=== PATIENT | male | born 1950 | race Caucasian/White ===

== ENCOUNTER 2017-05-01 09:44 | Observation (INO) | payer MEDICARE, OTHER, MEDICAID ==
[2017-05-01 10:08] LABS: BASOPHILS 0.4 % (0-2); EOSINOPHILS 1.9 % (0-7); HEMATOCRIT 41.1 % (42.0-54.0); HEMOGLOBIN 13.9 g/dL (13.5-17.5); IMMATURE GRANULOCYTES 0.3 % (0-5); LYMPHOCYTES 19.7 % (15-50); MCH 32.3 pg (26.0-34.0); MCHC 33.8 g/dL (31.0-37.0); MCV 95.4 fL (80.0-100.0); MEAN PLATELET VOLUME 11.1 fL (7.4-10.4); MONOCYTES 9.6 % (2-11); NEUTROPHILS 68.1 % (40-80); PLATELET COUNT 179 10x3/uL (130-400); RBC 4.31 10x6/uL (4.20-6.10); RDW 13.3 % (11.5-14.5)
[2017-05-01 10:22] LABS: ALBUMIN 3.6 g/dL (3.4-5.0); ALKALINE PHOSPHATASE 56 U/L (46-116); ALT (SGPT) 20 U/L (10-68); BILIRUBIN - TOTAL 0.29 mg/dL (0.2-1.3); CALC OSMOLALITY 279 mosm/kg (275-300); CALCIUM 8.6 mg/dL (8.5-10.1); CARBON DIOXIDE 27.4 mmol/L (21.0-32.0); CHLORIDE - SERUM 104 mmol/L (98-107); CREATININE - SERUM 1.1 mg/dL (0.6-1.3); GLUCOSE 120 mg/dL (74-106); POTASSIUM - SERUM 4.3 mmol/L (3.5-5.1); PROTEIN - SERUM 7.6 g/dL (6.4-8.2); SODIUM 139 mmol/L (136-145); UREA NITROGEN 16 mg/dL (7-18); eGFR NON AFRICAN AMERICAN 71 mL/min (90-120)
[2017-05-01 10:32] LABS: CKMB 0.2 U/L (0.0-3.6); CREATINE KINASE 54 UL (21-232)
[2017-05-01 10:34] LABS: TROPONIN-I < 0.017 ng/mL (0.000-0.060)
[2017-05-01 13:45] LABS: CKMB 0.2 U/L (0.0-3.6); CREATINE KINASE 57 UL (21-232)
--- NOTE | 2017-05-01 13:45 | NUR ---
PT REC'D TO ROOM VIA WC. AAOX4. ACCOMPANIED BY HOSPITAL STAFF AND FAMILY. NO COMPLAINTS OF PAIN. REGULAR HEART RATE AND RHYTHM. LUNG SOUNDS CLEAR AND EQUAL BILAT. BOWEL SOUNDS ACTIVE X4 QUADS. SKIN CDI. PIV TO L HAND FREE OF REDNESS AND SWELLING. NO CURRENT COMPLAINTS OF DIZZINESS OR SYNCOPE. HX OBTAINED. ANSWERS QUESTIONS APPROPRIATELY. FRESH WATER PROVIDED. BED LOW, CALL LIGHT IN REACH, DENIES NEEDS. CPOC.
[2017-05-01 13:47] LABS: TROPONIN-I < 0.017 ng/mL (0.000-0.060)
[2017-05-01] MEDS ORDERED: LISINOPRIL2.5 MG PO (13:48)
[2017-05-01] MEDS ORDERED: OMEPRAZOLE40 MG PO (13:49)
[2017-05-01] MEDS ORDERED: BAYER CHEWABLE81 MG PO (13:49)
[2017-05-01] MEDS ORDERED: BUSPAR 15 MG TA15 MG PO (13:50)
[2017-05-01] MEDS ORDERED: ALBUTEROL0.63 MG/3 INH (13:52)
--- NOTE | 2017-05-01 14:30 | NUR ---
URINE SPECIMEN OBTAINED AND SENT TO LAB. MEDICATIONS ADMINISTERED PER SEP. AT BEDSIDE. CHAIR BROUGHT TO ROOM. BED LOW, CALL LIGHT IN REACH, DENIES NEEDS. CPOC.
[2017-05-01 14:36] LABS: APPEARANCE CLEAR (CLEAR); COLOR YELLOW (YELLOW)
[2017-05-01 14:37] LABS: BILIRUBIN NEGATIVE (NEGATIVE); GLUCOSE NEGATIVE (NEGATIVE); KETONE NEGATIVE (NEGATIVE); NITRITE NEGATIVE (NEGATIVE); PROTEIN NEGATIVE (NEGATIVE); SPECIFIC GRAVITY 1.015 (1.005-1.020); UROBILINOGEN NORMAL (NORMAL)
[2017-05-01 17:19] VITALS: BP 117/58; BP 138/78
[2017-05-01 18:44] VITALS: BMI 25.1
[2017-05-01 19:20] LABS: CKMB 0.2 U/L (0.0-3.6); CREATINE KINASE 53 UL (21-232)
[2017-05-01 19:21] LABS: TROPONIN-I < 0.017 ng/mL (0.000-0.060)
[2017-05-01 20:40] VITALS: BP 135/70
--- NOTE | 2017-05-01 23:57 | NUR ---
ASSESSED AT THE BEGINNING OF THE SHIFT. PT IS ALERT AND ORIENTED, ABLE TO VERBALIZE NEEDS AND IS AT THE BEDSIDE. HE IS NOT HAVING ANY DIZZINESS AT THIS TIME. WHEN WE GAVE HIS HS MEDS HE STATED HE HAD NOT HAD HIS LISINOPRIL TODAY BUT IT SHOWS HE HAD IT, LOVENOX, AND AGUMENTEN. HE TOOK HIS ON PRILOSECT AND WE TALKED ABOUT HIM WORKING WITH HIS MD IN THE MORNING TO MAKE SURE HE HAS HIS MEDS CORRECT. HE IS ABLE TO GET UP TO THE BATHROOM AD LES AND ABLE TO TURN AND REPOSITION. THE BED IS LOW, RAILS UP X/S 2 WITH THE CALL LIGHT AT HAND.
--- NOTE | 2017-05-02 00:41 | NUR ---
RECEIVED REPORT FROM NIGHT NURSE. PT IN BED WITH EYES CLOSED. RESP EVEN AND UNLABORED. CALL LIGHT AT SIDE.
[2017-05-02 01:22] VITALS: BP 140/68
[2017-05-02 01:25] LABS: CKMB 0.3 U/L (0.0-3.6); CREATINE KINASE 53 UL (21-232); TROPONIN-I < 0.017 ng/mL (0.000-0.060)
[2017-05-02 04:08] VITALS: BP 143/42
--- NOTE | 2017-05-02 07:30 | NUR ---
AWAKE AND ALERT. OIREITNED X3. DENIES PAIN OR DIZZINESS THIS AM. NEURO CHECK WNL. LUNGS ARE CLEAR BILATERALLY, NO COUGH NOTED. SKIN IS INTACT WITHOUT REDNESS. SL TO LEFT HAND IS PATENT WITHOUT REDNESS AT INSERTION SITE. DENIES NEEDS.
[2017-05-02 08:25] VITALS: BP 139/60; BP 143/68
--- NOTE | 2017-05-02 09:30 | NUR ---
TOOK AM MEDS WITHOUT DIFFICULTY. ATE ALMOST ALL OF BREAKFAST.
--- NOTE | 2017-05-02 09:37 | HP ---
PATIENT: SHUKRI MENSAH MEDICAL RECORD: [id number] ACCOUNT: [id number] LOCATION:[id number] ADMISSION DATE: 05/01/17 HISTORY AND PHYSICAL EXAMINATION Admission History and Physical DATE OF OBSERVATION: 05/01/2017 CHIEF COMPLAINT: Dizziness and weakness. HISTORY OF PRESENT ILLNESS: This is a 66-year-old white male with a past medical history of coronary artery disease with a couple of stents, who woke up this morning about 5:30 and was going to go hunting. He states he got up fairly quickly out of bed, got up, felt dizzy and fell to the floor. He was able to get up and go on to the bathroom and he went back to bed and decided he was not going hunting. He woke up about 7:45 and got up a little slower that made his way into the kitchen and had a cup of coffee and he felt weak and dizzy then as well. Both of these episodes were associated with diaphoresis. He denies any chest pain. He states he just felt off balance. He though he better come in and get it checked, and so he presented to the ER where his vital signs were stable and he was admitted for acute dizziness, near syncope and generalized weakness. PAST MEDICAL AND SURGICAL HISTORY: He has had a history of high cholesterol. He has reflux and Hawley esophagus, history of kidney stones, diverticulitis. He has had some anxiety in the past. He got better after he retired. He has coronary artery disease and has had 2 strokes, followed by Dr. Woodson through the [facility], surgery, he had left shoulder surgery in 2010 and 2 stents in May 2015. HOME MEDICATIONS: Include omeprazole 40 mg twice a day, lisinopril 2.5 mg once a day, aspirin 81 mg once a day. He is taking buspirone 5 mg but on an irregular basis. He has not had one in a while. FAMILY HISTORY: Father at 71 of heart failure. Mother at 76, she had bladder cancer. The patient has a sister that within the last year and a younger sister about 9 years is in the hospital right now with cirrhosis and alcohol problems. HABITS: He is a former smoker, no alcohol or drugs. SOCIAL HISTORY: He is and retired from [employer] at [place]. REVIEW OF SYSTEMS: GENERAL: No major weight changes. HEENT: No particular sinus or allergy problems. RESPIRATORY: No diagnosis of emphysema, though he was a long time smoker. GASTROINTESTINAL: Has reflux and Hawley esophagus. GENITOURINARY: No significant problems there. MUSCULOSKELETAL: Occasional pains in the upper back. NEUROLOGIC: No seizures or migraine headaches. PSYCHIATRIC: As mentioned, he has been a little anxious at times. HISTORY AND PHYSICAL [id number] RODRICKSHUKRI PHYSICAL EXAMINATION: VITAL SIGNS: Today, temperature 99.0, pulse 66, respirations 16, blood pressure 117/58 and O2 sat 98%. GENERAL: He is awake and alert, does not have any symptoms right now. He is in no acute distress. SKIN: Warm and dry. HEENT: Grossly within normal limits. NECK: Supple. No JVD or bruits. HEART: Regular rate and rhythm without murmur. LUNGS: Clear. ABDOMEN: Soft, flat, nontender. EXTREMITIES: No edema. NEUROLOGIC: Intact. Cranial nerves are intact. No focal motor or sensory deficits noted. LABORATORY AND DIAGNOSTIC DATA: EKG showed normal sinus rhythm, rate of 71. Urinalysis was normal. CK and cardiac enzymes have been done twice so far, they are negative to date. Troponin is less than 0.017 times 2. CBC with a white count of 9000, hemoglobin 13.9, hematocrit 41.1 and platelets 179,000 with a normal differential. Basic metabolic panel is all normal. Liver functions were all normal. Chest x-ray showed no acute process. CT of the head showed nothing acute in the brain. There was incidental finding of some sinusitis in the right sphenoid sinus. CT of the chest showed nonspecific irregular 1.4 cm density in the right lung, is most likely some scarring. Carotid Doppler ultrasound suggested 50% to 69% stenosis in the right internal carotid artery. There are no old ones to compare with at this time. ASSESSMENT: 1. Dizziness. 2. Generalized weakness. 3. Near syncope. PLAN: We will continue to monitor overnight. We will get one more set of cardiac enzymes. We will go ahead had and get a CT angiogram of the neck of the carotids and make sure there is no significant blockage there. Other tests and procedures as warranted. TRANSINT:[id number] Voice Confirmation ID: [id number] DOCUMENT ID: [id number] LEONORA HEART MD at 0937 CC: [id number] DICTATION DATE: 05/01/17 174 CLINICAL MASSAGE THERAPIST: 05/01/17 1828 ADM IN [place] [id number] [place] [id number]
--- NOTE | 2017-05-02 10:56 | NUR ---
DISCHARGED TO HOME AMBULATORY [facility] . DISCHARGE INSTRUCTIONS GIVEN BOTH VERBALLY AND WRITTEN. ALL QUESTIONS ANSWERED. PATIENT AND VERBALIZED UNDERSTANDING OF SAME. NO NEW PRESCRIPTIONS NEEDED. WILL FOLLOW UP WITH DR. HEART FOR FUL AND PNEUMONIA VACCINE. ALL BELONGINGS WITH PATIENT.
== END 2017-05-02 10:58 | disposition home or self-care (01) ==
LOC: D.ER 09:44 → OBSVTIME 13:10 → D.MS 13:10
PROVIDERS: Family Medicine; ADMIT Family Medicine
DX: R55 Syncope and collapse (principal); R53.1 Weakness; R42 Dizziness and giddiness; I65.23 Occlusion and stenosis of bilateral carotid arteries